=== PATIENT | male | born 1985 | race Caucasian/White ===

== ENCOUNTER 2022-06-13 13:10 | Emergency (ER) | payer MEDICAID ==
[~2022-06-13] VITALS: Ht 185.4 cm; Wt 106.4 kg
[2022-06-13 14:52] VITALS: BP 127/80
[2022-06-13] MEDS ORDERED: CEPH250T PO (15:52)
== END 2022-06-13 16:03 | disposition home or self-care (01) ==
LOC: ER 13:11
DX: L25.9 Unspecified contact dermatitis, unspecified cause (principal); L03.90 Cellulitis, unspecified; Z88.0 Allergy status to penicillin; Z79.899 Other long term (current) drug therapy; Z88.5 Allergy status to narcotic agent
CPT/HCPCS: 99283

== ENCOUNTER 2022-07-25 11:54 | Emergency (ER) | payer MEDICAID ==
[~2022-07-25] VITALS: Ht 185.4 cm; Wt 104.1 kg
[2022-07-25 12:22] VITALS: BP 134/73
[2022-07-25] MEDS ORDERED: SULF1TAB49 PO (14:04)
[2022-07-25] MEDS ORDERED: bacitracin 15gm ointment TP ONE (14:05)
[2022-07-25] MEDS ORDERED: sulfamethoxazole/trimethoprim DS (800/160mg) tablet PO ONE (14:05)
== END 2022-07-25 14:16 | disposition home or self-care (01) ==
LOC: ER 11:55
DX: L02.416 Cutaneous abscess of left lower limb (principal); Z88.0 Allergy status to penicillin; Z88.5 Allergy status to narcotic agent; Z87.891 Personal history of nicotine dependence
CPT/HCPCS: 99283